=== PATIENT | male | born 1985 | race Caucasian/White ===

== ENCOUNTER 2017-02-28 09:55 | Emergency (ER) | payer BC, MEDICAID ==
[~2017-02-28] VITALS: Ht 172.7 cm; Wt 75.0 kg
[~2017-02-28 09:55] MED LIST: MECL25CH PO
[2017-02-28 09:57] VITALS: BP 150/92; PULSE 70; RESP 20; TEMP 98.2; O2SAT 99
[2017-02-28] MEDS ORDERED: KETOROLAC TROMETHAMINE 60 MG/2 ML (IM) VIAL IM ONE (10:15)
[2017-02-28] MEDS ORDERED: AMOXICILLIN 875 MG TAB PO ONE (10:15)
[2017-02-28] MEDS ORDERED: AMOX875T PO (10:21)
[2017-02-28] MEDS ORDERED: IBUP800T23 PO (10:21)
[2017-02-28] MEDS ORDERED: PERI0.126 SWISH-SPIT (10:21)
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
== END 2017-02-28 10:56 | disposition home or self-care (01) ==
LOC: NEPD 09:55
DX: K04.7 Periapical abscess without sinus (principal)
CPT/HCPCS: 96372; 99284; J1885

== ENCOUNTER 2017-08-16 15:55 | Emergency (ER) | payer SELFPAY ==
[~2017-08-16] VITALS: Ht 172.7 cm; Wt 75.0 kg
[~2017-08-16 15:55] MED LIST changes: +AMOX875T PO; +IBUP1TAB7 PO; -MECL25CH PO; +PERI0.126 SWISH-SPIT
[2017-08-16 15:56] VITALS: BP 125/74; PULSE 79; RESP 16; TEMP 98.5; O2SAT 98
[2017-08-16] MEDS ORDERED: IOHEXOL 350 MG/ML 10 ML VIAL (for RAD DIAG) IVCONTRAST ONE (15:56)
[2017-08-16] MEDS ORDERED: SODIUM CHLOR 0.9% 1000 ML INJ 1,000 ML IV SCH (17:24)
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
[2017-08-16 17:25] LABS: AUTOMATED NEUTROPHIL # 3.4 TH/MM3 (1.8-7.7); BASOPHIL # 0.1 TH/MM3 (0-0.2); BASOPHIL % 0.8 % (0.0-2.0); EOSINOPHIL # 0.1 TH/MM3 (0-0.4); HEMATOCRIT 42.8 % (39.0-51.0); HEMOGLOBIN 14.4 GM/DL (13.0-17.0); LYMPH % 37.7 % (9.0-44.0); LYMPHOCYTE # 2.5 TH/MM3 (1.0-4.8); MEAN CELL VOLUME 84.1 FL (80.0-100.0); MEAN CORPUSCULAR HEMOGLOBIN 28.2 PG (27.0-34.0); MEAN CORPUSCULAR HGB CONC 33.5 % (32.0-36.0); MEAN PLATELET VOLUME 7.6 FL (7.0-11.0); MONO % 8.4 % (0.0-8.0); MONOCYTE # 0.6 TH/MM3 (0-0.9); NEUT % 52.1 % (16.0-70.0); PLATELET COUNT 226 TH/MM3 (150-450); RED BLOOD COUNT 5.09 MIL/MM3 (4.50-5.90); RED CELL DISTRIBUTION WIDTH 12.8 % (11.6-17.2); WHITE BLOOD COUNT 6.5 TH/MM3 (4.0-11.0)
[2017-08-16 17:28] LABS: INTERNATIONAL NORMALIZED RATIO 1.1 RATIO; PROTHROMBIN TIME - PATIENT 10.7 SEC (9.8-11.6)
[2017-08-16 17:29] VITALS: RESP 16; O2SAT 99
[2017-08-16] MEDS ORDERED: ONDANSETRON HCL 4 MG/2 ML VIAL IVP ONE (17:30)
[2017-08-16] MEDS ORDERED: SODIUM CHLORIDE 0.9% FLUSH 10 ML FLUSH IV FLUSH PRN (17:30)
[2017-08-16 17:33] LABS: ALT (GPT) 17 U/L (12-78); AST (GOT) 13 U/L (15-37); BICARBONATE 27.3 MEQ/L (21.0-32.0); BLOOD UREA NITROGEN 9 MG/DL (7-18); CALCIUM 8.7 MG/DL (8.5-10.1); CHLORIDE 103 MEQ/L (98-107); CREATININE 0.95 MG/DL (0.60-1.30); GLOMERULAR FILTRATION RATE 91 ML/MIN (>89); GLUCOSE,RANDOM 89 MG/DL (74-106); LIPASE 128 U/L (73-393); SODIUM (NA) 137 MEQ/L (136-145)
[2017-08-16 17:36] LABS: ALKALINE PHOSPHATASE 59 U/L (45-117); TOTAL BILIRUBIN ADULT 0.6 MG/DL (0.2-1.0); TOTAL PROTEIN 7.7 GM/DL (6.4-8.2)
[2017-08-16] MEDS ORDERED: METOCLOPRAMIDE HCL 10 MG/2 ML VIAL IV PUSH ONE (19:15)
[2017-08-16] MEDS ORDERED: diphenhydrAMINE HCL 50 MG/ML VIAL IV PUSH ONE (19:15)
[2017-08-16] MEDS ORDERED: SODIUM CHLOR 0.9% 1000 ML INJ 1,000 ML IV ONE (19:15)
[2017-08-16 19:17] VITALS: BP 126/61; PULSE 82; RESP 18; O2SAT 99
[2017-08-16 19:20] LABS: BACTERIA, URINE OCC /hpf; BILIRUBIN, URINE NEG (NEG); BLOOD, URINE NEG (NEG); GLUCOSE,URINE NEG (NEG); KETONE, URINE 80 mg/dL (NEG); MUCUS URINE MANY /lpf (OCC); NITRITE,URINE NEG (NEG); PH, URINE 7.5 (5.0-8.5); URINE COLOR YELLOW (YELLW/STRAW); URINE LEUKOCYTE ESTERASE NEG (NEG)
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
[2017-08-16] MEDS ORDERED: FAMO1TAB73 PO (20:33)
[2017-08-16] MEDS ORDERED: CARA1SUS3 PO (20:33)
[2017-08-16] MEDS ORDERED: ZOFR8TAB4 SL (20:33)
--- NOTE | 2017-08-16 20:37 | PD ---
Physical Exam Date Seen by Provider: Aug 16, 2017 Time Seen by Provider: 20:34 Narrative GENERAL: This is a well-nourished, well-developed patient, in no apparent distress. SKIN: No rashes, ecchymoses or lesions. Warm and dry. HEAD: Atraumatic. Normocephalic. EYES: PERRL, EOMI, no discharge or injection. No scleral icterus. EARS: Clear NOSE: Nasal turbinates appear normal. THROAT: Mucosa pink and moist. Airway patent. NECK: Trachea midline. supple, moves head freely. LUNGS: Clear to auscultation. CV: Regular in rhythm. ABDOMEN: Soft, mild diffuse tenderness. No guarding or rebound. EXT: No clubbing cyanosis or edema. Data Data Last Documented VS Vital Signs Date Time Temp Pulse Resp B/P (MAP) Pulse Ox O2 Delivery O2 Flow Rate FiO2 08/16/17 19:17 82 18 126/61 (82) 99 Room Air 08/16/17 15:56 98.5 Orders Orders Complete Blood Count With Diff (08/16/17 16:03) Comprehensive Metabolic Panel (08/16/17 16:03) Lipase (08/16/17 16:03) Prothrombin Time / Inr (Pt) (08/16/17 16:03) Act Partial Throm Time (Ptt) (08/16/17 16:03) Urinalysis - C+S If Indicated (08/16/17 16:03) Ct Abd/Pel W Iv Contrast(Rout) (08/16/17 17:24) Iv Access Insert/Monitor (08/16/17 17:24) Ecg Monitoring (08/16/17 17:24) Oximetry (08/16/17 17:24) Ondansetron Inj (Zofran Inj) (08/16/17 17:30) Sodium Chlor 0.9% 1000 Ml Inj (Ns 1000 M (08/16/17 17:24) Sodium Chloride 0.9% Flush (Ns Flush) (08/16/17 17:30) Iohexol 350 Inj (Omnipaque 350 Inj) (08/16/17 15:56) Sodium Chlor 0.9% 1000 Ml Inj (Ns 1000 M (08/16/17 19:15) Metoclopramide Inj (Reglan Inj) (08/16/17 19:15) Diphenhydramine Inj (Benadryl Inj) (08/16/17 19:15) Ed Discharge Order (08/16/17 20:29) Labs Laboratory Tests Test 08/16/17 16:55 08/16/17 18:30 White Blood Count 6.5 TH/MM3 Red Blood Count 5.09 MIL/MM3 Hemoglobin 14.4 GM/DL Hematocrit 42.8 % Mean Corpuscular Volume 84.1 FL Mean Corpuscular Hemoglobin 28.2 PG Mean Corpuscular Hemoglobin Concent 33.5 % Red Cell Distribution Width 12.8 % Platelet Count 226 TH/MM3 Mean Platelet Volume 7.6 FL Neutrophils (%) (Auto) 52.1 % Lymphocytes (%) (Auto) 37.7 % Monocytes (%) (Auto) 8.4 % Eosinophils (%) (Auto) 1.0 % Basophils (%) (Auto) 0.8 % Neutrophils # (Auto) 3.4 TH/MM3 Lymphocytes # (Auto) 2.5 TH/MM3 Monocytes # (Auto) 0.6 TH/MM3 Eosinophils # (Auto) 0.1 TH/MM3 Basophils # (Auto) 0.1 TH/MM3 CBC Comment DIFF FINAL Differential Comment Prothrombin Time 10.7 SEC Prothromb Time International Ratio 1.1 RATIO Activated Partial Thromboplast Time 26.9 SEC Blood Urea Nitrogen 9 MG/DL Creatinine 0.95 MG/DL Random Glucose 89 MG/DL Total Protein 7.7 GM/DL Albumin 4.0 GM/DL Calcium Level 8.7 MG/DL Alkaline Phosphatase 59 U/L Aspartate Amino Transf (AST/SGOT) 13 U/L Alanine Aminotransferase (ALT/SGPT) 17 U/L Total Bilirubin 0.6 MG/DL Sodium Level 137 MEQ/L Potassium Level 4.2 MEQ/L Chloride Level 103 MEQ/L Carbon Dioxide Level 27.3 MEQ/L Anion Gap 7 MEQ/L Estimat Glomerular Filtration Rate 91 ML/MIN Lipase 128 U/L Urine Color YELLOW Urine Turbidity CLEAR Urine pH 7.5 Urine Specific [place] 1.027 Urine Protein 30 mg/dL Urine Glucose (UA) NEG mg/dL Urine Ketones 80 mg/dL Urine Occult Blood NEG Urine Nitrite NEG Urine Bilirubin NEG Urine Urobilinogen 2.0 MG/DL Urine Leukocyte Esterase NEG Urine RBC LESS THAN 1 /hpf Urine WBC 1 /hpf Urine Bacteria OCC /hpf Urine Mucus MANY /lpf Microscopic Urinalysis Comment CULT NOT INDICATED [facility] Medical Record Reviewed: Yes Supervised Visit with WILMER: Yes Interpretation(s) CBC & BMP Diagram 08/16/17 16:55 Total Protein 7.7, Albumin 4.0, Calcium Level 8.7, Alkaline Phosphatase 59, Aspartate Amino Transf (AST/SGOT) 13 L, Alanine Aminotransferase (ALT/SGPT) 17, Total Bilirubin 0.6 Last 24 hours Impressions Abdomen/Pelvis CT 08/16/17 1724 Signed Impressions: Service Date/Time: Wednesday, August 16, 2017 18:18 - CONCLUSION: Negative CT abdomen/pelvis with contrast. Glenn Sparrow MD Differential Diagnosis . Narrative Course IV access is been obtained. Patient has had a total 2 L normal saline, Zofran 4 mg IV, Benadryl 50 mg IV, Reglan 10 mg IV. Patient has been given a by mouth challenge. He has tolerated by mouth fluids. His laboratory testing as well as his CAT scan have been unrevealing. His white count is normocephalic flexion normal. He has a mildly elevated ketone. No acute emergent condition identified. This is vomiting, abdominal pain. Diagnosis Primary Impression: vomiting Additional Impression: abdominal pain Referrals: [facility] 1 day Patient Instructions: General Instructions Departure Forms: Tests/Procedures, Work Release Special Instructions: No work 2 days. Additional Instruction: Rest. Increase fluids. Zofran for nausea. Carafate and Pepcid. Follow-up with the [facility] in the next 1-2 days. Return to the ER if any problems. Med/Other Pt SpecificInfo: Prescription(s) given Scripts Famotidine (Pepcid) 40 Mg Tab 40 MG PO BID, #20 TAB 0 Refills Prov: Anna Drew MD 08/16/17 Sucralfate Liq (Carafate Liq) 1 Gm/10 Ml Susp 1 GM PO QID for Duodenal ulcer, #1200 ML 0 Refills on empty stomach Prov: Anna Drew MD 08/16/17 Ondansetron Odt (Zofran Odt) 8 Mg Tab 8 MG SL Q8H Y for NAUSEA OR VOMITING, #12 TAB 0 Refills Prov: Anna Drew MD 08/16/17 Disposition: 01 DISCHARGE HOME Condition: Stable Allen Multani Aug 16, 2017 20:37
== END 2017-08-16 21:08 | disposition home or self-care (01) ==
LOC: NEPD 15:55
DX: R11.2 Nausea with vomiting, unspecified (principal); R10.84 Generalized abdominal pain; R19.7 Diarrhea, unspecified; F17.210 Nicotine dependence, cigarettes, uncomplicated
CPT/HCPCS: 74177; 80053; 81001; 83690; 85025; 85610; 85730; 96361; 96374; 96375; 99285; J1200; J2405; J2765; J7030; Q9967